=== PATIENT | female | born 1955 | race Caucasian/White ===

== ENCOUNTER → 2022-05-24 14:00 | Outpatient (BNVA) | payer MEDICARE, OTHER, SELFPAY | PROVIDERS: Visit Provider Internal Medicine | DX: M86.9 Osteomyelitis, unspecified (principal) | CPT/HCPCS: 99202 ==

== ENCOUNTER → 2022-06-17 10:18 | Day surgery (SDC) | payer MEDICARE, OTHER, SELFPAY ==
--- NOTE | 2022-06-17 13:59 | HO.PICC ---
PICC Line Insertion NPICC Diagnosis: Osteomyelitis right foot Indication: intermediate project manager anyibiotics Pertinent Labs: reviewed Technique: Following informed consent including risks, benefits and alternatives and using sterile technique including cap and mask, sterile gown, glove and drape, the left arm was prepped and draped in the usual sterile fashion of full barrier technique with CHG. Following completion of Delong Protocol the skin and soft tissues were anesthetized with 1% Lidocaine plain. Using ultrasound guidance, Left brachial vein access was obtained in second attempt by this RN. Over an 0.018 wire through peel-away sheath, a Single lumen 4 [place] PASV PICC line was positioned. Catheter length is 45 cm internal length, 0 cm external length, for a total trimmed length of 45 cm. The procedure was performed in S272. Tip verification was performed by Fam Jefferson with Nas 3CG. Tip located in SVC. Ultrasound was used to document vein patency and for needle entry. A formal ultrasound picture and cardiac rhythm strip was recorded. [employer] has released the line for use and it is currently dressed with a StatLock, Tegaderm, and CHG disc. Verification has been performed for blood return and line patency. Arm Circumference: 27 cm Equipment: Bard PowerPICC Solo 4 [place] single lumen PASV Catheter Type: Bard PowerPICC Solo 4 [place] single lumen PASV Lot #: [id number]
== END ==
PROVIDERS: Radiology Diagnostic Radiology; PCP Internal Medicine; Visit Provider Internal Medicine
DX: M86.9 Osteomyelitis, unspecified (principal); E11.69 Type 2 diabetes mellitus with other specified complication
CPT/HCPCS: 36573; C1751

== ENCOUNTER 2022-06-17 13:49 | Outpatient (REF) | payer MEDICARE, OTHER, SELFPAY | END 2022-06-17 13:50 | disposition home or self-care (01) | LOC: HO.MDS 13:49 | PROVIDERS: PCP Internal Medicine; Visit Provider Internal Medicine | DX: Z53.9 Procedure and treatment not carried out, unspecified reason (principal); M86.9 Osteomyelitis, unspecified ==

== ENCOUNTER 2022-06-18 10:31 | Outpatient (REF) | payer MEDICARE, OTHER, SELFPAY | END 2022-06-18 10:32 | disposition home or self-care (01) | LOC: HO.MDS 10:31 | PROVIDERS: PCP Internal Medicine; Visit Provider Internal Medicine | DX: Z45.2 Encounter for adjustment and management of vascular access device (principal); E11.69 Type 2 diabetes mellitus with other specified complication; M86.8X7 Other osteomyelitis, ankle and foot; Z79.4 Long term (current) use of insulin | CPT/HCPCS: 96365; J0878 ==

== ENCOUNTER → 2022-07-17 11:30 | Outpatient (BNVA) | payer MEDICARE, OTHER, SELFPAY | PROVIDERS: PCP Internal Medicine; Visit Provider Internal Medicine | DX: M86.9 Osteomyelitis, unspecified (principal) | CPT/HCPCS: 99212 ==

== ENCOUNTER → 2022-08-14 11:30 | Outpatient (BNVA) | payer MEDICARE, OTHER, SELFPAY | PROVIDERS: PCP Internal Medicine; Visit Provider Internal Medicine | DX: M86.9 Osteomyelitis, unspecified (principal) | CPT/HCPCS: 99212 ==